=== PATIENT | female | born 1995 | race Two or more races ===

== ENCOUNTER 2017-05-13 18:46 | Emergency (ER) | payer SELFPAY ==
[~2017-05-13] VITALS: Ht 157.5 cm; Wt 59.0 kg
--- NOTE | 2017-05-13 18:55 | NUR ---
PT BIBRA FROM [facility] ALTERED AND EMOTIONAL S/P TAKING CBD PILLS. DENIES SI/HI. GOWNED AND PLACED ON MONITOR. AWAITING MD LAMAR.
--- NOTE | 2017-05-13 18:58 | NUR ---
D RAY AT BEDSIDE FOR EVAL.
--- NOTE | 2017-05-13 19:10 | NUR ---
IV LINE STARTED BLOOD DRAWN AND SENT TO LAB.
--- NOTE | 2017-05-13 19:15 | NUR ---
PT STATING UNABLE TO PROVIDE URINE. WILL TRY AGAIN LATER.
[2017-05-13 19:18] LABS: BASOPHILS % (AUTO) 0.1 % (0.0-2.0); HEMATOCRIT 36 % (33-45); HEMOGLOBIN 12.4 g/dL (11.5-14.8); LYMPHOCYTES % (AUTO) 9.5 % (20.0-44.0); MEAN CORPUSCULAR HEMOGLOBIN 31 PG (26.0-33.0); MEAN CORPUSCULAR HGB CONC 34 g/dl (31.0-36.0); MEAN CORPUSCULAR VOLUME 91 fL (82-100); MONOCYTES # (AUTO) 0.4 /CMM (0.1-1.30); MONOCYTES % (AUTO) 4.1 % (2.0-12.0); NEUTROPHILS # (AUTO) 9.1 /CMM (1.8-8.9); NEUTROPHILS % (AUTO) 86.3 % (43.0-81.0); PLATELET COUNT (AUTO) 227 /CMM (150-450); RDW COEFFICIENT OF VARIATION 11.6 (11.5-15.0); RED BLOOD CELL COUNT(AUTO) 3.99 MIL/uL (4.0-5.2); WHITE BLOOD COUNT (AUTO) 10.6 K/uL (4.3-11.0)
[2017-05-13 19:26] LABS: CALCIUM, SERUM 8.5 mg/dL (8.5-10.1); CREATININE 0.8 mg/dL (0.6-1.3)
[2017-05-13 19:32] LABS: ALBUMIN 3.8 g/dL (3.4-5.0); BILIRUBIN,DIRECT 0.1 mg/dL (0.0-0.2); BILIRUBIN,TOTAL 0.3 mg/dL (0.2-1.0); SALICYLATE 1.1 mg/dL (2.8-20.0)
--- NOTE | 2017-05-13 20:30 | NUR ---
PT IS SLEPING. ON MONITOR W/ STABLE VITALS. WILL CONTNUE TO MONITOR.
--- NOTE | 2017-05-13 22:30 | NUR ---
PT SLEEPING IN BED. AROUSABLE, ASK IF SHE WANTS TO GO HOME PT JUST LAUGHING. STILL APPEARS ALTERED. ON MONITOR W/ STABLE VITALS. WILL CONTINUE TO MONITOR.
--- NOTE | 2017-05-13 23:39 | NUR ---
REPORT GIVEN TO CHARGE NURSE TOM FOR MARILIN.
[2017-05-13 23:54] VITALS: BP 112/60
--- NOTE | 2017-05-13 23:54 | NUR ---
Note saray in EDM - 05/13/17 at 2359 by AIMEE Patient discharged to home in stable condition. Written and verbal after care instructions given. Patient verbalizes understanding of instruction.IV removed. Catheter intact and site benign. Pressure and 4x4 applied to site. No bleeding noted. PATIENT WAS PICKED UP BY HER MOTHER,ESEQUIEL
--- NOTE | 2017-05-13 23:59 | NUR ---
Patient discharged to home in stable condition. Written and verbal after care instructions given. Patient verbalizes understanding of instruction.IV removed. Catheter intact and site benign. Pressure and 4x4 applied to site. No bleeding noted. PATIENT WAS PICKED UP BY BROTHER ESEQUIEL.
== END 2017-05-13 23:55 | disposition home or self-care (01) ==
LOC: ER 18:47
DX: F12.929 Cannabis use, unspecified with intoxication, unspecified (principal)
CPT/HCPCS: 36415; 80048-TC; 80076-TC; 84702-TC; 85025-TC; A4606; G0480; J7030; Z7610